=== PATIENT | female | born 1985 | race Caucasian/White ===

== ENCOUNTER 2022-10-30 20:54 | Emergency (ER) | payer BC, SELFPAY ==
[2022-10-30 21:22] VITALS: BP 113/80; PULSE 87; RESP 18; TEMP 37.1; O2SAT 100; BMI 32.5
[2022-10-30 21:31] LABS: Microscopic, Urine URINE MICROSCOPIC (MICROSCOPIC)
[2022-10-30 21:35] LABS: Appearance,Urine CLEAR (Clear); Bilirubin,Urine Negative (Negative); Blood, Urine 3+ (Negative); Color,Urine YELLOW (Yellow); Glucose,Urine (UA) Negative (Negative); Ketones,Urine Negative (Negative); Leukocyte Esterase,Urine 1+ (Negative); Nitrate,Urine Negative (Negative); Protein,Urine Negative (Negative); Urobilinogen,Urine 0.2 EU/dl (0.2)
--- NOTE | 2022-10-30 21:35 | CT_ITS ---
PROCEDURE INFORMATION: Exam: CT Head Without Contrast Exam date and time: 10/30/2022 9:57 PM Age: 37 years old Clinical indication: Dizziness; Patient HX: C/O left arm numbness TECHNIQUE: Imaging protocol: Computed tomography of the head without contrast. Radiation optimization: All CT scans at this facility use at least one of these dose optimization techniques: automated exposure control; mA and/or kV adjustment per patient size (includes targeted exams where dose is matched to clinical indication); or iterative reconstruction. REPORTING DATA: Count of CT and Cardiac NM exams in prior 12 months: This patient has received 0 known CTs and 0 known cardiac nuclear medicine studies in the 12 months prior to the current study. COMPARISON: No relevant prior studies available. FINDINGS: Brain: Normal. No hemorrhage. Unremarkable white matter. No mass effect. Cerebral ventricles: No ventriculomegaly. Paranasal sinuses: Visualized sinuses are unremarkable. No fluid levels. Mastoid air cells: Visualized mastoid air cells are well aerated. Bones/joints: Unremarkable. No acute fracture. Soft tissues: Unremarkable. IMPRESSION: No acute intracranial abnormality.
[2022-10-30 21:41] LABS: Basophils # 0.1 K/mm3 (0-0.2); Basophils % 0.9 % (0.1-2.0); Eosinophils # 0.1 K/mm3 (0.0-0.4); Eosinophils % 1.6 % (0.1-12.0); Hematocrit 32.6 % (37.0-47.0); Hemoglobin 10.6 g/dL (12.2-16.2); Lymphocytes # 2.1 K/mm3 (0.7-4.5); Lymphocytes % 32.5 % (10-50); Mean Corpuscular HGB Conc 32.7 g/dL (31.8-35.4); Mean Corpuscular Hemoglobin 24.6 pg (27.0-31.2); Mean Corpuscular Volume 75.3 fl (81-99); Mean Platelet Volume 7.6 fl (7.4-10.4); Monocytes # 0.2 K/mm3 (0.1-1.0); Monocytes % 3.6 % (1.7-9.3); Neutrophils # 3.9 K/mm3 (1.8-7.8); Neutrophils % 61.5 % (37.0-80.0); Platelet Count 326 K/mm3 (142-424); Red Blood Count 4.32 M/mm3 (4.20-5.40); Red Cell Distribution Width 15.4 % (11.5-17.5); White Blood Count 6.3 K/mm3 (4.8-10.8)
[2022-10-30 21:46] LABS: Alanine Aminotransferase 25 U/L (12-78); Albumin Level 4.7 g/dl (3.5-5.0); Albumin/Globulin Ratio 1.9 (1.1-1.8); Alkaline Phosphatase 63 U/L (38-126); Anion Gap 11.7 mEq/L (5-15); Aspartate Amino Transferase 29 U/L (14-36); Bilirubin,Total 0.4 mg/dl (0.2-1.3); Blood Urea Nitrogen 9 mg/dl (7-17); Calcium 8.7 mg/dl (8.4-10.2); Carbon Dioxide 27 mmol/L (22.0-30.0); Chloride 101 mmol/L (98-107); Creatinine Clearance Estimated 165 mL/min (50-200); Estimated Glomerular Filt Rate 81 ml/min (>60); GFR (African American) 98 ML/MIN (>60); Globulin 2.5 g/dL (1.3-3.2); Glucose 131 mg/dl (74-100); Potassium 3.7 mmoL/L (3.5-5.1); Sodium 136 mmol/L (136-145); Total Protein,Serum 7.2 g/dl (6.3-8.2)
--- NOTE | 2022-10-30 21:48 | ECG_ITS ---
APPROVED REPORT Exam: Resting ECG HR:72 bpm ECG Measurements Heart Rate 72 AXES WA 180 P 32 QRSd 89 QRS 12 QT 393 T 14 QTc 417 Conclusion SINUS RHYTHM NORMAL ECG UNCONFIRMED REPORT Electronically signed by : Everette Worley MD 10/31/2022 17:16:53
[2022-10-30 21:50] LABS: Urine Pregnancy, HCG Qual. Negative (Negative)
[2022-10-30 21:51] LABS: C-Reactive Protein 1.7 mg/L (0-4)
--- NOTE | 2022-10-30 21:54 | PC.NURSE ---
Rounded on patient, no needs voiced at this time.
[2022-10-30 22:00] VITALS: BP 131/83; PULSE 90; RESP 18; O2SAT 99
[2022-10-30 22:00] LABS: Bacteria,Urine 2+ /lpf
[2022-10-30 22:05] LABS: Procalcitonin 0.053 ng/mL (0.0-2.0); T4 (Thyroxine) 8.6 ug/dl (5.53-11.0)
[2022-10-30 22:15] LABS: Troponin I < 0.01 ng/ml (0.00-0.034)
[2022-10-30 22:19] LABS: Thyroid Stimulating Hormone 0.59 uIU/mL (0.465-4.68)
[2022-10-30 22:31] VITALS: BP 107/62; PULSE 84; RESP 18; O2SAT 98
[2022-10-30 22:43] LABS: Erythrocyte Sedimentation Rate 18 mm/hr (0-20)
--- NOTE | 2022-10-30 22:54 | [facility].EDEXTP ---
Discharge Plan Disposition Patient Disposition: Home, Self-Care Prescriptions Prescriptions: New prednisone [prednisone] 20 mg tablet 20 mg PO BID Qty: 10 0RF Referrals Follow up/Referrals: Provider,Referral, MD [Primary Care Provider] - See instructions Clinical Impressions Clinical Impression: Cervical radicular pain Instructions Patient Instructions: DI for Cervical Radiculopathy Discharge ED Provider: Hussain (ED)Farooq Extremity Problem HPI General Chief complaint: Extremity Problem,Nontraumatic Stated complaint: upper left side is num Time Seen by Provider: 10/30/22 22:54 Mode of Arrival: Ambulatory Source of Information: Patient and Medical Record Limitations: No Limitations Description of Symptoms (Recalled from ER Triage Doc. by RN): Pt complains of Left arm Numbness and tingling that started yesterday while she was watching tv. States her pinky and ring finger are numb, hand is tingling. No previous medical hx reported. Pt denies headache, althought she states she is seeing black dots sporadically.. History of Present Illness HPI Narrative: acute onset ot lt upper ext tingling on lat aspect - no fever/trauma or rash - some element of neck pain - no motor sx and no lower ext sx and no speech or visual sx- MD Complaint: other (as above ) Onset (ago): day(s) Consistency: intermittent Location: left and upper extremity Related Data Previous Rx's Medication Instructions Recorded prednisone 20 mg tablet 20 mg PO BID #10 tabs 10/30/22 Allergies Allergy/AdvReac Type Severity Reaction Status Date / Time No Known Allergies Allergy Verified 10/30/22 21:33 [facility] Disclaimer: The information contained in this section may have been updated after the patient was seen, as this information can be updated by other users. Social History Smoking Status: Current every day smoker alcohol intake: never current occupational status: employed Travel in the last 8 weeks: None ROS Obtained: Yes All systems reviewed & no additional complaints except as documented Physical Exam General General appearance: alert Head Head exam: normocephalic Eye Eye exam: Present PERRL and EOMI ENT ENT exam: Present mucous membranes moist Neck Neck exam: Present trachea midline Respiratory Respiratory exam: Present normal lung sounds bilaterally; Absent respiratory distress Cardiovascular Cardiovascular exam: Present regular rate Abdominal Exam Abdominal exam: Present soft Extremities Exam Extremities exam: Present full ROM Expanded Upper Extremity Exam Left: Shoulder exam: Present full ROM Arm exam: Present full ROM Elbow exam: Present full ROM Forearm/Wrist exam: Present full ROM Hand exam: Present full ROM Vascular exam: Normal capillary refill and radial pulse Comment: no def cts sx Neurological Exam Neurological exam: Present alert, oriented X3, CN II-XII intact, normal gait and reflexes normal; Absent motor sensory deficit Psychiatric Psychiatric exam: Present normal affect Skin Skin exam: Absent rash Medical Decision Making Medical Records Medical records reviewed: Yes I reviewed the patient's medical records. [place] Inquiry Pt receiving controlled substance: No Vital Signs: 10/30/22 21:22 10/30/22 22:00 10/30/22 22:31 Temperature 98.8 F Temperature Source Oral Pulse Rate 90 84 Pulse Rate [Right] 87 Respiratory Rate 18 18 18 Blood Pressure 131/83 107/62 L Blood Pressure [Right Arm] 113/80 Blood Pressure Mean 96 82 Blood Pressure Mean [Right Arm] 91 Blood Pressure Source [Right Arm] Automatic Cuff Blood Pressure Position [Right Arm] Sitting 02 Sat by Pulse Oximetry 100 99 98 Oxygen Delivery Method Room Air Lab Data Lab results reviewed: Yes I reviewed the patient's lab results. Lab Results 10/30/22 21:10: WBC 6.3, RBC 4.32, Hgb 10.6 L, Hct 32.6 L, MCV 75.3 L, MCH 24.6 L, MCHC 32.7, RDW 15.4, Plt
[2022-10-30 23:00] VITALS: BP 113/70; PULSE 69; RESP 18; O2SAT 99
[2022-10-30 23:34] VITALS: BP 113/70; PULSE 76; RESP 16; TEMP 36.6; O2SAT 97
== END 2022-10-30 23:36 | disposition home or self-care (01) ==
PROVIDERS: Emergency Provider Emergency Medicine
DX: M54.12 Radiculopathy, cervical region (principal); R20.0 Anesthesia of skin
CPT/HCPCS: 70450; 80053; 81001; 81025; 84145; 84436; 84443; 84484; 85025; 85651; 86140; 87086; 87088; 87186; 93005; 96360; 96374; 96375; 99284; 99285

== ENCOUNTER → 2022-11-10 13:38 | Outpatient (CLI) | payer BC, SELFPAY ==
--- NOTE | 2022-11-10 13:38 | CT_ITS ---
FINAL REPORT TECHNIQUE: Axial CT of the brain with contrast. Coronal reformatted images were obtained. This study was performed with techniques to keep radiation doses as low as reasonably achievable, (ALARA). Individualized dose reduction techniques using automated exposure control or adjustment of mA and/or kV according to the patient's size were employed. CLINICAL HISTORY: numbness and tingling left arm PRIOR CT HEAD W/O WAS DONE ON 10-30-22 COMPARISON: 10/30/2022 FINDINGS: There is no mass effect or midline shift. There is no hydrocephalus. The ventricles are symmetric in size and configuration. There is no extra-axial or intraparenchymal hemorrhage. The posterior fossa is without acute abnormality. The basilar cisterns are preserved. The soft tissues are without acute abnormality. No acute osseous abnormality is identified. No abnormal contrast enhancement is seen. IMPRESSION: No acute intracranial abnormality. Reviewed, Interpreted and Dictated by Zunilda Vazquez MD Transcribed by Berenice Salazar Authenticated and [facility]
== END ==
LOC: RAD 13:38
PROVIDERS: PCP Nurse Practitioner Family; Visit Provider Nurse Practitioner Family
DX: R20.2 Paresthesia of skin (principal); R20.0 Anesthesia of skin
CPT/HCPCS: 70460; 93306; Q9966